=== PATIENT | female | born 2005 | race Hispanic/Latino ===

== ENCOUNTER 2025-04-30 21:41 | Observation (INO) | payer OTHER ==
[~2025-04-30] VITALS: Ht 152.4 cm; Wt 74.5 kg
[2025-04-30 23:05] LABS: BASO # 0.0 10^3/uL (0.0-0.2); BASO % 0.2 % (0.0-1.0); EOS # 0.1 10^3/uL (0.0-0.5); EOS % 0.5 % (0.0-3.0); LYMPH # 1.2 10^3/uL (1.5-5.0); LYMPH % 12.8 % (24.0-44.0); MONO # 0.8 10^3/uL (0.0-0.8); MONO % 8.0 % (2.0-8.0); NEUTROPHILS # 7.3 10^3/uL (1.5-8.5); NEUTROPHILS % 78.2 % (36.0-66.0); PLATELET COUNT, AUTOMATED 188 10^3/uL (150-450)
[2025-04-30 23:37] LABS: ETHYL ALCOHOL (ETHANOL) < 0.003 % (0.000-0.010)
[2025-04-30 23:39] LABS: CALCIUM LEVEL 9.0 MG/DL (8.5-10.1); CARBON DIOXIDE LEVEL 26 MMOL/L (20-31); CHLORIDE LEVEL 106 MMOL/L (98-107); CREATININE FOR GFR 0.51 MG/DL (0.55-1.30); GLOMERULAR FILTRATION RATE > 90.0 (>60); POTASSIUM SERUM 3.9 MMOL/L (3.5-5.1); SODIUM LEVEL 143 MMOL/L (136-145)
[2025-04-30] MEDS: NS (Normal Saline) 0.9% 1,000 ML IV ONE (23:40)
[2025-04-30] MEDS: UNRESOLVED CLARIFICATION ENTRY XX STA (23:42)
[2025-04-30 23:47] LABS: HCG, SERUM QUALITATIVE NEGATIVE (NEGATIVE)
[2025-04-30 23:54] LABS: CPK CREATINE PHOSPHOKINASE 7476 U/L (34-145)
[2025-05-01] MEDS: NS (Normal Saline) 0.9% 1,000 ML IV ONE (00:52)
[2025-05-01 02:02] LABS: KETONE, URINE AUTO RFX NEGATIVE (NEGATIVE); LEUKOCYTE ESTERASE UR AUTO RFX NEGATIVE (NEGATIVE); MUCUS, URINE RFX SMALL (NEGATIVE); NITRITE, URINE AUTO RFX NEGATIVE (NEGATIVE); RBC, URINE AUTO RFX 0 /HPF (0-3); SQUAM EPITHELIAL CELL UR AURFX 3 /HPF (0-6); WBC, URINE AUTO RFX 1 /HPF (0-3)
[2025-05-01 02:26] LABS: AMPHETAMINES LEVEL URINE NEGATIVE (NEGATIVE); BARBITURATES URINE NEGATIVE (NEGATIVE); BENZODIAZEPINES URINE NEGATIVE (NEGATIVE); COCAINE METABOLITE URINE NEGATIVE (NEGATIVE); METHADONE URINE NEGATIVE (NEGATIVE); OPIATES URINE NEGATIVE (NEGATIVE); PHENCYCLIDINE URINE NEGATIVE (NEGATIVE)
[2025-05-01 02:29] LABS: CANNABINOIDS URINE POSITIVE (NEGATIVE)
[2025-05-01] MEDS ORDERED: ACETAMINOPHEN 325 MG TAB PO PRN (03:55)
[2025-05-01] MEDS: NS (Normal Saline) 0.9% 1,000 ML IV SCH (04:04)
[2025-05-01] MEDS ORDERED: IRON65TA2 PO (04:57)
[2025-05-01] MEDS ORDERED: GNP250TA9 PO (04:57)
[2025-05-01] MEDS ORDERED: B-12100010 PO (04:57)
[2025-05-01] MEDS ORDERED: VITA100T59 PO (04:57)
[2025-05-01] MEDS ORDERED: NORG75TA PO (04:57)
[2025-05-01] MEDS ORDERED: HOME MED LIST COMPLETE! XX SCH (05:00)
[2025-05-01 05:05] VITALS: BP 125/60; TEMP 98.5; O2SAT 98
[2025-05-01 05:38] VITALS: BP_SYST 116; BP_SYST 123; BP_SYST 128; BP_DIAS 57; BP_DIAS 61; BP_DIAS 66
[2025-05-01 09:05] LABS: PLATELET COUNT, AUTOMATED 130 10^3/uL (150-450)
[2025-05-01 09:28] LABS: ALT/SGPT 46 U/L (7.0-40); AST/SGOT 152 U/L (<34); CALCIUM LEVEL 8.2 MG/DL (8.5-10.1); CARBON DIOXIDE LEVEL 25 MMOL/L (20-31); CHLORIDE LEVEL 113 MMOL/L (98-107); CREATININE FOR GFR 0.45 MG/DL (0.55-1.30); GLOMERULAR FILTRATION RATE > 90.0 (>60); POTASSIUM SERUM 3.9 MMOL/L (3.5-5.1); SODIUM LEVEL 146 MMOL/L (136-145)
[2025-05-01 09:58] LABS: CPK CREATINE PHOSPHOKINASE 8576 U/L (34-145)
[2025-05-01 12:21] VITALS: BP 122/58; TEMP 97.7; O2SAT 98
[2025-05-02] MEDS ORDERED: HEPARIN SOD 5000 UNITS/ML 1 ML VIAL/SYRINGE SQ SCH (09:00)
== END 2025-05-01 15:13 | disposition left against medical advice (07) ==
LOC: M ED 21:41 → M ED INP 21:42 → M MS4PR 05-01 04:55
PROVIDERS: ADMIT Student in an Organized Health Care Education/Training Program; ATTEND Internal Medicine
DX: R55 Syncope and collapse (principal); E87.20 Acidosis, unspecified; M62.82 Rhabdomyolysis; X50.3XXA Overexertion from repetitive movements, initial encounter; R53.83 Other fatigue; R74.8 Abnormal levels of other serum enzymes; M79.651 Pain in right thigh; M79.652 Pain in left thigh; F10.91 Alcohol use, unspecified, in remission; Z79.899 Other long term (current) drug therapy; Z79.4 Long term (current) use of insulin